=== PATIENT | female | born 1980 | race Caucasian/White ===

== ENCOUNTER → 2021-01-23 | Outpatient (CLI) | payer OTHER ==
[~2021-01-23] MED LIST: BUPIVACAINE MPF 0.5% 10 ML VIAL. INT ART ONE; GADOTERATE 5 MMOL/10ML VIAL. INT ART ONE; IOHEXOL 300 MG/ML 50 ML VIAL. INT ART ONE; LIDOCAINE 1% Multi-Dose 20 ML VIAL. ID ONE
--- NOTE | 2021-01-23 17:10 | KCIC ---
DG ARTHROGRAM SHOULDER RIGHT History: Reason: Right shoulder pain, decreased ROM. PROCEDURE: The risks, alternatives, benefits of the procedure discussed with the patient. Written informed cons ent is obtained. A timeout is performed. Skin site was chosen under fluoroscopy. This area is prepped and draped in normal sterile fashion. 1% Lidocaine is used for superficial and deep local anesthesia. Using intermittent fluoroscopy, a 22 -gauge spinal needle is advanced into the joint space. Then a dilute gadolinium solution is instilled , total volume approximately 12 mL. The needle was removed. Hemostasis is achieved. The patient to lerated the procedure well. There is no immediate complication. Patient was transferred to MRI. Fluoroscopy time 25 seconds Fluoroscopic images: 1. IMPRESSION: 1. Fluoroscopically guided right shoulder arthrogram prior to MRI. Electronically signed by: Griffin Gomez DO (01/23/2021 5:08 PM) [id number]
--- NOTE | 2021-01-24 11:25 | KCIC ---
Exam Date: 01/23/2021 3:45 PM MRI RIGHTUPPER EXTREMITY JOINT WITH IV CONTRAST Indication: Reason: Right shoulder pain, decreased ROM. / Spl. Instructions: / History: Rt shoulder pain and DECR, no specific injury. MR ARTHROGRAM RIGHT SHOULDER WITH CONTRAST TECHNIQUE: Multiplanar MR imaging of the shoulder was performed following the intra-articular injecti on of both iodinated contrast and dilute gadolinium contrast. The fluorscopic-guided shoulder injec tion procedure is reported separately. FINDINGS: There is a superior labral anterior to posterior tear (SLAP tear). There is an 11 x 7 x 15 mm multilo culated paralabral cyst anteriorly, and a 9 x 7 x 16 mm multiloculated paralabral cyst posteriorly. Long head of the biceps tendon is intact. The supraspinatus, infraspinatus, teres minor, and subscapularis tendons are intact. No full-thicknes s rotator cuff tendon tear is identified. Rotator cuff muscles demonstrate normal signal and bulk. Mild degenerative changes are present at the acromioclavicular joint. There is an intact type I acrom ion. Small fluid is seen in the subacromial/subdeltoid bursa consistent with mild bursitis. There is no extravasation of contrast into the subacromial/subdeltoid bursa to suggest full-thickness rotator cuff tendon tear. The glenohumeral joint is within normal limits. No large full-thickness chondral defects are identifi ed. Bone marrow demonstrates normal signal on all sequences without evidence of acute fracture. IMPRESSION: Superior labral anterior to posterior tear (SLAP tear), with paralabral cysts noted anteriorly and po steriorly. Mild subacromial/subdeltoid bursitis. Intact rotator cuff tendons. Electronically signed by: Alex Pedroza MD (01/24/2021 11:22 AM) [id number]
== END | disposition home or self-care (01) ==
LOC: KCIC 13:24
PROVIDERS: ATTEND Orthopaedic Surgery
DX: M25.511 Pain in right shoulder (principal); S43.431A Superior glenoid labrum lesion of right shoulder, initial encounter; M75.51 Bursitis of right shoulder; X58.XXXA Exposure to other specified factors, initial encounter; Y93.89 Activity, other specified; Y92.89 Other specified places as the place of occurrence of the external cause; Y99.8 Other external cause status
CPT/HCPCS: 23350; 73222; 77002; A9575; J3490; Q9967; 73040

== ENCOUNTER 2021-03-10 06:25 | Day surgery (SDC) | payer OTHER ==
[~2021-03-10] VITALS: Ht 152.4 cm; Wt 90.0 kg
[~2021-03-10 06:25] MED LIST changes: -BUPIVACAINE MPF 0.5% 10 ML VIAL. INT ART ONE; -GADOTERATE 5 MMOL/10ML VIAL. INT ART ONE; +HYDROmorphone 2 MG/ML VIAL IVP PRN; -IOHEXOL 300 MG/ML 50 ML VIAL. INT ART ONE; +IV RINGERS,LACTATED 1000ML 1,000 ML IV SCH; -LIDOCAINE 1% Multi-Dose 20 ML VIAL. ID ONE; +MORPHINE SULFATE 2 MG/ML VIAL. IVP PRN; +PROCHLORPERAZINE 10 MG/2 ML VIAL. IVP PRN; +fentaNYL PF VIAL 100 MCG/2 ML VIAL IVP PRN
[2021-03-10] MEDS ORDERED: LACO100T PO (06:52)
[2021-03-10] MEDS ORDERED: ESCITALOPRAM OX10 MG PO (06:53)
[2021-03-10 06:57] VITALS: BP 141/79
[2021-03-10] MEDS ORDERED: PROPOFOL 10 MG/ML (20ML) VIAL. IV ONE (07:10)
[2021-03-10] MEDS ORDERED: LIDOCAINE 2% PF 5 ML VIAL. ONE (07:10)
[2021-03-10] MEDS ORDERED: fentaNYL PF VIAL 250 MCG/5 ML VIAL ONE (07:10)
[2021-03-10] MEDS ORDERED: MIDAZOLAM HCL/PF 2 MG/2 ML VIAL. ONE (07:10)
[2021-03-10] MEDS ORDERED: ROCURONIUM 50 MG/5 ML VIAL. ONE (07:10)
[2021-03-10] MEDS ORDERED: EPINEPHrine VIAL 30 MG/30 ML VIAL ONE (07:16)
[2021-03-10] MEDS ORDERED: ROPIVacaine 0.5% PF 20 ML VIAL. ONE (07:20)
[2021-03-10] MEDS ORDERED: ONDANSETRON PF 4 MG/2 ML VIAL. ONE (08:28)
[2021-03-10] MEDS ORDERED: DEXAMETHASONE SOD PHOS 4 MG/ML VIAL ONE (08:28)
[2021-03-10] MEDS ORDERED: GLYCOPYRROLATE 1 MG/5 ML VIAL. ONE (08:44)
[2021-03-10] MEDS ORDERED: NEOSTIGMINE METHYLSULFATE 5 MG/5 ML SYRINGE. ONE (08:44)
[2021-03-10] MEDS ORDERED: OXYC1TAB19 PO (09:07)
--- NOTE | 2021-03-10 09:09 | DISCH ---
DISCHARGE INSTRUCTIONS Condition on Discharge Condition on Discharge: Stable Activity After Discharge Activity Instructions for Disc: Other, see below (Immediate movement of otis ulder is permitted. No lifting pushing pulling over 5 pounds) Lifting Instructions after Dis: No heavy lifting, No pulling or pushing Weight Bearing Status after Di: As tolerated Diet after Discharge Diet after Discharge: Regular Wound Incision Care Wound/Incision Care: Change dressing (Remove dressing in 2 days may then shower no soaking until wound check on follow-up) Community/Resources/Services Services at Discharge: PT EVALUATE & TREAT (Evaluate and treat with active and passive range of motion, only restriction is 5 pound elbow flexion limit for 6 weeks postop to protect biceps tenodesis) Contacting the DRMickey after DC Call your doctor for: Concerns you may have Follow-Up Follow up with: Dr. Guajardo or [facility]art[facility] 10 days LAITH GUAJARDO MD March 10, 2021 09:09
[2021-03-10] MEDS ORDERED: fentaNYL PF VIAL 100 MCG/2 ML VIAL ONE (09:26)
[2021-03-10] MEDS ORDERED: oxyCODONE/APAP 7.5/325 1 TAB TABLET PO ONE (09:30)
[2021-03-10 09:50] VITALS: BP 128/76
--- NOTE | 2021-03-10 14:56 | PDOC4 ---
Operative Note Operative Note Date of surgery: 03/10/2021 Preoperative diagnosis: Right shoulder SLAP tear Postoperative diagnosis: Same with type II SLAP tear Operative procedure: Right shoulder arthroscopy labral debridement biceps tenodesis Surgeon: Bennett Anesthesia: General plus scalene block Estimated blood loss: 5 cc Complications: None Operative indications: Please see my orthopedic clinic note for detailed operative indications and note that we had discussed both operative and nonoperative treatment options including a decision based on her operative findings including the likelihood of biceps tenodesis versus labral repair and we discussed the risks of possible infection nerve or blood vessel damage continued pain nonhealing medical other anesthetic complications among others all his questions were answered she wishes to proceed with surgical evaluation and treatment Operative text: Patient was identified procedure verified patient placed in the supine position on the operating table. After adequate amounts of general anesthesia were administered plus a pre-existing scalene block the patient was placed in the decubitus position right side up with all bony prominences well- padded. The right shoulder was then examined under anesthesia found to have full range of motion and no instability. The right shoulder was then prepped and draped in standard sterile fashion placed in the arthroscopic arm hui with a total of 10 pounds of traction and after timeout was performed patient procedure identified and verified a standard posterior portal was established anterior portal established using spinal needle localization and the shoulder joint was systematically examined. She was found to have an unstable type II SLAP tear and significant labral fraying around its posterior and inferior aspect. Biceps was tenotomized and extensive additional labral debridement was carried out to ensure stability. She had a normal bare area of the humerus and capsuloligamentous structures were likewise intact along with glenohumeral joint cartilage and subscapularis insertion. Subacromial space was then entered biceps groove was unroofed and the biceps retrieved through an anterior portal and was whipstitched and tenodesed after satisfactory tensioning with a [facility] 8 mm biceps tenodesis peek bolt fixation. Biceps contour was well fixated and restored. Joint was then drained of arthroscopic fluid portals closed with nylon suture sterile dressings were applied and he was returned to recovery room in stable condition having tolerated procedure well. LAITH PRICE MD March 10, 2021 14:56
== END 2021-03-10 10:35 | disposition home or self-care (01) ==
LOC: SURG 06:25
PROVIDERS: ATTEND Orthopaedic Surgery
DX: S43.431A Superior glenoid labrum lesion of right shoulder, initial encounter (principal); F32.9 Major depressive disorder, single episode, unspecified; Z90.49 Acquired absence of other specified parts of digestive tract; Z90.710 Acquired absence of both cervix and uterus; Z98.890 Other specified postprocedural states; Z79.899 Other long term (current) drug therapy; Z87.891 Personal history of nicotine dependence; Z88.8 Allergy status to other drugs, medicaments and biological substances; X58.XXXA Exposure to other specified factors, initial encounter; Y93.89 Activity, other specified; Y92.89 Other specified places as the place of occurrence of the external cause; Y99.8 Other external cause status
CPT/HCPCS: 29807; 29828; 64415; A4565; A4930; C1713; J0171; J0690; J1100; J2250; J2405; J2704; J2710; J2795; J3010; J3490